=== PATIENT | male | born 1955 | race Caucasian/White ===

== ENCOUNTER 2018-07-30 19:13 | Emergency (ER) | payer SELFPAY ==
[2018-07-30 19:23] VITALS: BP 134/93
--- NOTE | 2018-07-30 19:24 | EDPHY ---
H & P Time Seen by Provider: 07/30/18 19:15 HPI/ROS: CHIEF COMPLAINT: Medical screening for incarceration HISTORY OF PRESENT ILLNESS: 63-year-old male via police for medical screening for incarceration. He describes multiple subacute lesions on his lower extremities particularly his left distal pretibial region where he sustained injury from a car door 1-2 months ago notes that the wound has been slow to heal. Denies fever chills. Denies lymphangitic streaking. Denies fetid odor. Denies abdominal pain denies chest pain. Denies weight loss. REVIEW OF SYSTEMS: 10 systems reviewed and negative with the exception of the elements mentioned in the history of present illness PAST MEDICAL & SURGICAL HISTORY: Chronic alcohol abuse SOCIAL HISTORY: Denies acute alcohol use . Denies IV drug abuse. PHYSICAL EXAM (Prior to examination, patient consented to physical exam, hands were washed and my usual and customary physical exam procedures followed) 1) GENERAL: Well-developed, well-nourished, alert and oriented. Appears to be in no acute distress. 2) HEAD: Normocephalic, atraumatic 3) HEENT: Pupils equal, round, reactive to light bilaterally. Sclera anicteric. Nasopharynx, oropharynx, clear, no lesions. Moist Mucous membranes. 4) NECK: Full range of motion, no meningeal signs. 5) LUNGS: Clear auscultation bilaterally, no wheezes, no rhonchi, no retractions. 6) HEART: Regular rate and rhythm, no murmur, no heave, no gallop. 7) ABDOMEN: No guarding, no rebound, no focal tenderness, negative McBurney's, negative Alex's, negative Rovsing's, negative peritoneal sign, 8) MUSCULOSKELETAL: Left lower extremity: Left distal pretibial region 2, sub acute pretibial lesions with no signs of infection. No lymphangitic streaking. No crepitus. Soft compartments. On the patient's left thigh he has total of 3 subacute skin lesions which are flat, nontender, non weeping. distal dp and pt pulses are brisk. Otherwise, Moving all extremities, no focal areas of tenderness, no obvious trauma. No peripheral edema or discoloration. 9) BACK: No CVA tenderness, no midline vertebral tenderness, no fluctuance, no step-off, no obvious trauma, no visual or palpable abnormality. 10) SKIN: No rash, no petechiae. 11) Psychiatric: Patient is oriented X 3, there is no agitation. DIFFERENTIAL DIAGNOSIS: In no particular include but limited to vasculopathy, cellulitis, abscess, necrotizing fasciitis Smoking Status: Never smoked Constitutional: Initial Vital Signs Temperature (C) 36.9 C 07/30/18 19:14 Heart Rate 106 H 07/30/18 19:14 Respiratory Rate 16 07/30/18 19:14 Blood Pressure 142/118 H 07/30/18 19:14 O2 Sat (%) 96 07/30/18 19:14 O2 Delivery Mode Room Air Allergies/Adverse Reactions: No Known Allergies Allergy (Unverified 07/30/18 19:14) Home Medications: Medication Instructions Recorded NK [No Known Home Meds] 07/30/18 MDM/Departure - MDM ED Course/Re-evaluation: Patient is in the ER for medical screening prior to incarceration. He has multiple subacute lesions and of particular concern the patient is a slow to heal wound of left distal pretibial region. This is not appear to be acutely infected. I Do not think that antibiotics indicated at this time. A dressing has been placed in the ER and he will be discharged with law enforcement to longterm. Recommend follow up on outpatient basis. He may necessitate follow up at [facility]. Given my usual and customary wound precautions instructions. Care of patient under supervision of secondary supervising physician Dr Roberson with whom I discussed case. - Depart Disposition: Law Enforcement/Court/[facility] Clinical Impression: Wounds and injuries Condition: Good Instructions: Wound Healing and Your Diet (ED) Referrals: [facility] [Clinic] - 2-3 days, call for appt.
== END 2018-07-30 19:30 ==
DX: S81.802A Unspecified open wound, left lower leg, initial encounter (principal); F10.10 Alcohol abuse, uncomplicated; X58.XXXA Exposure to other specified factors, initial encounter; Y92.810 Car as the place of occurrence of the external cause; Y93.9 Activity, unspecified; Y99.9 Unspecified external cause status